=== PATIENT | male | born 1985 | race Caucasian/White ===

== ENCOUNTER 2016-11-08 16:44 | Inpatient (IN) ==
[2016-11-08] MEDS ORDERED: *HR* LORazepam 1 MG TABLET PO PRN (17:53)
[2016-11-08] MEDS ORDERED: traZODone 50 MG TABLET PO PRN (17:53)
[2016-11-08] MEDS ORDERED: Haloperidol Lactate 5 MG/ML VIAL IM PRN (17:53)
[2016-11-08] MEDS ORDERED: Mag Hydrox/Al Hydrox/Simeth 30 ML UDC PO PRN (17:53)
[2016-11-08] MEDS ORDERED: MOM Conc 10 ML UD.LIQ PO PRN (17:53)
[2016-11-08] MEDS ORDERED: hydrOXYzine pamoate 25 MG CAPSULE PO PRN (17:53)
[2016-11-08] MEDS ORDERED: *HR* LORazepam 2 MG/ML VIAL IM PRN (17:53)
[2016-11-08] MEDS: traMADol 50 MG TABLET PO PRN (19:24)
[2016-11-08] MEDS: Nicotine 2 MG GUM BC PRN ×2 (19:24→21:44)
[2016-11-08] MEDS: diazePAM 5 MG TABLET PO SCH (20:58)
[2016-11-08] MEDS ORDERED: Ibuprofen 800 MG TABLET PO PRN (21:31)
[2016-11-09] MEDS: Nicotine 2 MG GUM BC PRN ×4 (09:05→21:11)
[2016-11-09] MEDS: diazePAM 5 MG TABLET PO SCH (09:07)
[2016-11-09] MEDS: traMADol 50 MG TABLET PO PRN (09:10)
[2016-11-09] MEDS ORDERED: Divalproex (12 HR) 250 MG TABLET PO ONE (10:12)
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
[2016-11-09] MEDS: *HR* OxyCODONE Immed Rel 5 MG TABLET PO PRN ×2 (10:49→20:51)
[2016-11-09] MEDS: Divalproex (12 HR) 500 MG TABLET PO SCH (20:51)
[2016-11-09] MEDS ORDERED: Mirtazapine 15 MG TABLET PO SCH (21:00)
[2016-11-09] MEDS: diazePAM 2 MG TABLET PO SCH (21:54)
[2016-11-10] MEDS: *HR* OxyCODONE Immed Rel 5 MG TABLET PO PRN (08:58)
[2016-11-10] MEDS: diazePAM 2 MG TABLET PO SCH (08:58)
[2016-11-10] MEDS: Divalproex (12 HR) 500 MG TABLET PO SCH (08:58)
[2016-11-10] MEDS: Nicotine 2 MG GUM BC PRN (08:59)
--- NOTE | 2016-11-10 09:32 | Psychiatry Progress Note ---
Date of Encounter: 11/10/16 Time of Encounter: 09:15 Subjective Interval history: Patient seen today , case d/w treatment team . patient is stating he slept and still has some anxiety and has taken prn hydroxyzine. he slept better, i had no nightmares last night. denies any side effects. patient denies suicidal or homocidal idea. he has h/o raging behaviours , agitation and agrees to all and has threatening behaviours. he at present denying any auditory hallucinations , no visual hallucination his foot pain is about 4 as per him. he has support from family. plan to dc patient today with his family with out patient appointment, declined counselling. Review of Systems Psychiatric: Reports: anxiety, auditory hallucinations, difficulty concentrating , mood swings Objective: Exam Patient orientation: Yes Person, Yes Time, Yes Place Level of alertness: Alert Patient appearance: Appropriate Behavior: cooperative, anxious Psychomotor activity: Normal Eye contact: Maintains Eye Contact Mood description: Anxious Affect description: congruent with mood Speech pattern: Coherent Speech volume: Normal Thought process: Racing Thought content: Yes Intact Judgment: Good Insight: Partial Results - Vital Signs Vital Signs: Temp Pulse Resp BP 98.1 F 80 18 159/92 11/09/16 21:00 11/09/16 21:00 11/09/16 21:00 11/09/16 21:00 Assessment and Plan (1) Depression Current visit: No Status: Acute Risks, benefits, side effects, alternatives discussed w/pt: Yes Patient agreeable to treatment: Yes Qualifiers: Depression Type: major depressive disorder Major depression recurrence: recurrent Active/Remission status: currently active Major depression episode severity: severe Psychotic features: without psychotic features Qualified Code(s): F33.2 - Major depressive disorder, recurrent severe without psychotic features (2) PTSD (post-traumatic stress disorder) Current visit: Yes Status: Chronic Risks, benefits, side effects, alternatives discussed w/pt: Yes Patient agreeable to treatment: Yes (3) Intermittent explosive disorder Current visit: Yes Status: Acute Risks, benefits, side effects, alternatives discussed w/pt: Yes Patient agreeable to treatment: Yes Consult Discharge Plan - Plan Referrals: Sae Carbaj[facility] Nick Ibarra [Outside] - 12/05/16 9:00 am (The above appointment is with, Dr. Avril Steele, psychiatrist, for outpatient psychiatric assessment and medication management services. Please arrive 15 minutes early to complete paperwork. Please bring your insurance card, photo ID and medications in their original bottles. If you do not have insurance, bring proof of income to apply for the sliding fee scale. If you are unable to keep this appointment, 24 hour business notice of cancellation is expected. This is the first available appointment. You may contact the office regularly to check for cancellations that may allow you to be seen sooner. )
--- NOTE | 2016-11-10 09:48 | Discharge Summary ---
Date of Encounter: 11/10/16 Time of Encounter: 09:15 Diagnosis - Discharge Diagnosis (1) Depression Status: Acute Qualifiers: Depression Type: major depressive disorder Major depression recurrence: recurrent Active/Remission status: currently active Major depression episode severity: severe Psychotic features: without psychotic features Qualified Code(s): F33.2 - Major depressive disorder, recurrent severe without psychotic features (2) PTSD (post-traumatic stress disorder) Status: Chronic (3) Intermittent explosive disorder Status: Acute Medications - Discharge Medications Prescriptions: Divalproex (12 HR) [Depakote (12 HR)] 500 mg PO BID #60 hydrOXYzine HCl [Hydroxyzine HCl] 25 - 50 mg PO BID PRN #30 PRN Reason: Anxiety/Sleep Mirtazapine [Remeron] 15 mg PO HS #30 tab Prazosin [Minipress] 1 mg PO HS #30 Tramadol HCl [Ultram] 50 mg PO TID PRN #12 tab 11/08/16 [Rx] amLODIPine [Norvasc] 5 mg PO HS 11/08/16 [History] Divalproex (12 HR) [Depakote (12 HR)] 500 mg PO BID #60 11/10/16 [Rx] Ibuprofen [Motrin] 800 mg PO Q8HR PRN tab 11/10/16 [Rx] Mirtazapine [Remeron] 15 mg PO HS #30 tab 11/10/16 [Rx] Prazosin [Minipress] 1 mg PO HS #30 11/10/16 [Rx] Sertraline [Zoloft] 100 mg PO DAILY tab 11/10/16 [Rx] hydrOXYzine HCl [Hydroxyzine HCl] 25 - 50 mg PO BID PRN #30 11/10/16 [Rx] hydrocodone Allergy (Verified 06/13/16 12:14) Hives Provider Date of admission: 11/09/16 13:41 Primary care physician: PCP NONE Assessment and Plan - Patient/Caregiver Discharge Instructions Diet: regular diet - Follow up [facility] 9:00 am (The above appointment is with, Dr. Avril Steele, psychiatrist, for outpatient psychiatric assessment and medication management services. Please arrive 15 minutes early to complete paperwork. Please bring your insurance card, photo ID and medications in their original bottles. If you do not have insurance, bring proof of income to apply for the sliding fee scale. If you are unable to keep this appointment, 24 hour business notice of cancellation is expected. This is the first available appointment. You may contact the office regularly to check for cancellations that may allow you to be seen sooner. ) Overall status at discharge: patient is back to baseline Disposition: Home, Self-Care Hospital Course Hospital course: Mr. Hoskins is a 30 year old male who was admitted after he went to clinic to see Dr Hoskins , he became agitated , and argumentative at the staff, he was threathening to hurt self,his was concerned about his safety admitted to hearing voices , his psychiatrist Dr Hoskins refered him to ED , patient was admitted to inpatient . Patient has h/o depression ,PTSD, and anxiety , he has been in treatment since child. he admitted to feeling depress, angry, agitated and states he has extreme rage and has been explosive rages, he doesnot sleep, extreme anxiety, he felt med changes done recently did not help him but made him more depressed and he was not sleeping more than 2 hours. he denies suicidal ideation or thoughts of hurting someone but agreed when he gets in rage he can . Patient hurt his foot and his ankle and 2 toes are broken. he was seen by orthopaedic and treatment given. today he is calm , cooperative and denies aud./visual hallucination, no si/hi. he slept well last night and had no nightmares , he meds were changed. zoloft decreased back to 100 mg, remeron 15 mg hs added with prazosin for PTSD and nightmares, also depakote for his anger and rage and racing thoughts. patient has support from family and will be discharged today, He denied any side effects and plan explained to patient about getting depakote level , and increase dose if his outpt. psychiatrist feels he needs to. informed consent obtained. Time spent discussing smoking cessation with patient: 3 to 10 minutes Does patient wish to continue nicotine replacement upon disc: No - Time Spent with Patient Total time spent providing and/or coordinating discharge services: Greater than 30 minutes Quality - Multiple Antipsychotics Patient discharged on 2 or more antipsychotic medications: No Procedures - Procedures Procedures: Medication Management, Crisis Stabilization, Supportive Therapy, Group Therapy, Psychoeducational Therapy Mental Status Exam - Mental Status Exam Patient orientation: Yes Person, Yes Time, Yes Place Level of alertness: Alert Patient appearance: Appropriate Behavior: anxious Psychomotor activity: Normal Eye contact: Maintains Eye Contact Mood description: Anxious Affect description: congruent with mood Speech pattern: Coherent Speech Volume: Normal Thought process: Racing Thought Content: Yes Intact Judgment: Good Insight: Full
[2016-11-16 00:36] VITALS: BP 140/95
== END 2016-11-10 10:45 | disposition home or self-care (01) | DRG 885 ==
LOC: 1ANU 16:44 → INTOOBSV 16:44
PROVIDERS: ADMIT Psychiatry & Neurology Psychiatry; ATTEND Psychiatry & Neurology Psychiatry